=== PATIENT | male | born 1975 | race Caucasian/White ===

== ENCOUNTER 2017-11-03 08:12 | Emergency (ER) | payer MEDICAID, OTHER ==
[~2017-11-03] VITALS: Ht 195.6 cm; Wt 86.0 kg
[~2017-11-03 08:12] MED LIST: BACL10TA2 PF; CITA20TA11 PO; CITA20TA19 PO; CLIN-80 PO; CYCL-1 PO; DIPH25CA83 PO; DOXY100C43 PO; ROPI2TAB4 PO
[2017-11-03 08:24] VITALS: BP 133/73
[2017-11-03] MEDS ORDERED: ketorolac trometh inj. 60 MG/2 ML VIAL IM ONE (08:45)
== END 2017-11-03 09:30 | disposition home or self-care (01) ==
LOC: ER 08:12
DX: S46.912A Strain of unspecified muscle, fascia and tendon at shoulder and upper arm level, left arm, initial encounter (principal); G62.9 Polyneuropathy, unspecified; G89.29 Other chronic pain; F12.10 Cannabis abuse, uncomplicated; F15.10 Other stimulant abuse, uncomplicated; Z59.0 Homelessness; Z56.0 Unemployment, unspecified; X58.XXXA Exposure to other specified factors, initial encounter; Y93.89 Activity, other specified; Y92.89 Other specified places as the place of occurrence of the external cause; Y99.8 Other external cause status
CPT/HCPCS: 96372; 99283; J1885

== ENCOUNTER 2017-11-05 05:29 | Emergency (ER) | payer MEDICARE, OTHER ==
[~2017-11-05] VITALS: Ht 195.6 cm; Wt 81.8 kg
[2017-11-05] MEDS ORDERED: ketorolac tromethamine 15mg/ml inj. IM ONE (07:25)
[2017-11-05 09:08] VITALS: BP 126/72
== END 2017-11-05 09:10 | disposition home or self-care (01) ==
LOC: ER 05:30
DX: S46.912D Strain of unspecified muscle, fascia and tendon at shoulder and upper arm level, left arm, subsequent encounter (principal); G43.909 Migraine, unspecified, not intractable, without status migrainosus; G62.9 Polyneuropathy, unspecified; G89.29 Other chronic pain; F12.10 Cannabis abuse, uncomplicated; F15.10 Other stimulant abuse, uncomplicated; Z86.14 Personal history of Methicillin resistant Staphylococcus aureus infection; Z56.0 Unemployment, unspecified; Z88.5 Allergy status to narcotic agent; Z88.8 Allergy status to other drugs, medicaments and biological substances; Z79.899 Other long term (current) drug therapy; Z98.890 Other specified postprocedural states; X58.XXXD Exposure to other specified factors, subsequent encounter
CPT/HCPCS: 96372; 99284; A4565; J1885

== ENCOUNTER 2017-11-20 23:10 | Emergency (ER) | payer MEDICARE, OTHER ==
[~2017-11-20] VITALS: Ht 195.6 cm; Wt 81.8 kg
[2017-11-20 23:11] VITALS: BP 111/79
[2017-11-20] MEDS ORDERED: PRAM1TAB4 PO (23:23)
== END 2017-11-20 23:31 | disposition home or self-care (01) ==
LOC: ER 23:10
DX: G25.81 Restless legs syndrome (principal); F12.10 Cannabis abuse, uncomplicated; F15.10 Other stimulant abuse, uncomplicated; G62.9 Polyneuropathy, unspecified; G89.29 Other chronic pain; G43.909 Migraine, unspecified, not intractable, without status migrainosus; Z76.0 Encounter for issue of repeat prescription; Z79.899 Other long term (current) drug therapy; Z88.8 Allergy status to other drugs, medicaments and biological substances; Z60.2 Problems related to living alone; Z56.0 Unemployment, unspecified; Z98.890 Other specified postprocedural states
CPT/HCPCS: 99283

== ENCOUNTER 2018-01-17 19:13 | Emergency (ER) | payer MEDICARE, MEDICAID ==
[~2018-01-17] VITALS: Ht 195.6 cm; Wt 65.0 kg
[~2018-01-17 19:13] MED LIST changes: +CITA-278 PO; -CITA20TA11 PO; -CLIN-80 PO; +CLIN300C85 PO; +PRAM1TAB4 PO
[2018-01-17] MEDS ORDERED: LORazepam 1 MG tablet PO ONE (19:40)
[2018-01-17] MEDS ORDERED: diphenhydrAMINE 25mg capsule PO ONE (19:40)
[2018-01-17 19:56] VITALS: BP 150/104
== END 2018-01-17 19:59 | disposition home or self-care (01) ==
LOC: ER 19:14
DX: F41.9 Anxiety disorder, unspecified (principal); G43.909 Migraine, unspecified, not intractable, without status migrainosus; G62.9 Polyneuropathy, unspecified; G89.29 Other chronic pain; F17.200 Nicotine dependence, unspecified, uncomplicated; F12.90 Cannabis use, unspecified, uncomplicated; F15.90 Other stimulant use, unspecified, uncomplicated; Z86.14 Personal history of Methicillin resistant Staphylococcus aureus infection; Z98.890 Other specified postprocedural states; Z56.0 Unemployment, unspecified; Z59.0 Homelessness; Z88.5 Allergy status to narcotic agent; Z88.8 Allergy status to other drugs, medicaments and biological substances; Z79.899 Other long term (current) drug therapy
CPT/HCPCS: 99284; Q0163

== ENCOUNTER 2018-01-28 11:51 | Emergency (ER) | payer MEDICARE, MEDICAID ==
[~2018-01-28] VITALS: Ht 195.6 cm; Wt 75.0 kg
[2018-01-28 12:00] VITALS: BP 121/72
== END 2018-01-28 12:21 | disposition home or self-care (01) ==
LOC: ER 11:51
DX: Z02.89 Encounter for other administrative examinations (principal); F10.10 Alcohol abuse, uncomplicated; F15.10 Other stimulant abuse, uncomplicated; G62.9 Polyneuropathy, unspecified; G43.909 Migraine, unspecified, not intractable, without status migrainosus; F31.9 Bipolar disorder, unspecified; F12.90 Cannabis use, unspecified, uncomplicated; Z59.0 Homelessness; Z56.0 Unemployment, unspecified; Z98.890 Other specified postprocedural states; Z88.5 Allergy status to narcotic agent; Z79.2 Long term (current) use of antibiotics; Z79.899 Other long term (current) drug therapy
CPT/HCPCS: 99281

== ENCOUNTER 2018-06-22 02:03 | Emergency (ER) | payer MEDICARE, MEDICAID ==
[~2018-06-22] VITALS: Ht 195.6 cm; Wt 82.3 kg
[2018-06-22 02:08] VITALS: BP 130/76
[2018-06-22] MEDS ORDERED: LORazepam 1 MG tablet PO ONE (02:20)
[2018-06-22] MEDS ORDERED: ondansetron 4mg rapidly disintigrating tab PO ONE (02:20)
[2018-06-22] MEDS ORDERED: AZIT-63 PO (03:02)
[2018-06-22] MEDS ORDERED: GUAI473S11 PO (03:02)
== END 2018-06-22 03:16 | disposition home or self-care (01) ==
LOC: ER 02:05
DX: F41.9 Anxiety disorder, unspecified (principal); J20.9 Acute bronchitis, unspecified; G43.909 Migraine, unspecified, not intractable, without status migrainosus; G89.29 Other chronic pain; F31.9 Bipolar disorder, unspecified; F12.10 Cannabis abuse, uncomplicated; F15.10 Other stimulant abuse, uncomplicated; G62.9 Polyneuropathy, unspecified; F17.200 Nicotine dependence, unspecified, uncomplicated; Z59.0 Homelessness; Z90.49 Acquired absence of other specified parts of digestive tract; Z56.0 Unemployment, unspecified; Z88.5 Allergy status to narcotic agent
CPT/HCPCS: 99284

== ENCOUNTER 2018-08-21 04:42 | Emergency (ER) | payer MEDICARE, MEDICAID ==
[~2018-08-21] VITALS: Ht 195.6 cm; Wt 62.6 kg
[2018-08-21 04:47] VITALS: BP 140/96
[2018-08-21 05:46] LABS: BASOPHILS # (AUTO) 0.1 X10'3 (0-0.2); BASOPHILS % (AUTO) 0.5 % (0-1); EOSINOPHILS # (AUTO) 0.1 X10'3 (0-0.9); EOSINOPHILS % (AUTO) 1.1 % (0-6); HEMATOCRIT 44.1 % (42.0-52.0); HEMOGLOBIN 15.1 g/dl (14.0-17.9); LYMPHOCYTES # (AUTO) 1.5 X10'3 (1.1-4.8); LYMPHOCYTES % (AUTO) 11.6 % (21-51); MEAN CORPUSCULAR HEMOGLOBIN 30.9 PG (27.0-31.0); MEAN CORPUSCULAR HGB CONC 34.3 g/dL (33.0-36.5); MEAN CORPUSCULAR VOLUME 90.1 FL (78-98); MEAN PLATELET VOLUME 7.5 FL (7.4-10.4); MONOCYTES # (AUTO) 0.7 X10'3 (0-0.9); MONOCYTES % (AUTO) 5.4 % (2-12); NEUTROPHILS # (AUTO) 10.6 X10'3 (1.8-7.7); NEUTROPHILS % (AUTO) 81.4 % (42-75); PLATELET COUNT 277 X10'3 (140-440); RED CELL DISTRIBUTION WIDTH 13.9 % (11.5-14.5)
[2018-08-21 06:17] LABS: ALANINE AMINOTRANSFERASE 22 U/L (12-78); ALBUMIN 4.1 G/DL (3.4-5.0); ALBUMIN/GLOBULIN RATIO 1.1 (1.1-1.5); ALKALINE PHOSPHATASE 69 IU/L (46-116); ANION GAP 14 (8-16); ASPARTATE AMINO TRANSFERASE 24 U/L (10-37); BLOOD UREA NITROGEN 19 MG/DL (7-18); BUN/CREATININE RATIO 18.8 (5.4-32.0); CHLORIDE 101 MMOL/L (99-107); CREATININE 1.01 MG/DL (0.60-1.10); GLUCOSE 140 MG/DL (70-104); SODIUM 142 MMOL/L (135-145); TOTAL CARBON DIOXIDE 26.6 MMOL/L (24-32); TOTAL PROTEIN 7.9 G/DL (6.4-8.2); eGFR 80 ML/MIN
[2018-08-21] MEDS ORDERED: LORazepam 1 MG tablet PO ONE (06:25)
[2018-08-21 06:30] LABS: ETHANOL < 0.010 GM/DL (0.0-0.010)
[2018-08-21 06:30] LABS: URINE AMPHETAMINE SCREEN POSITIVE (Neg); URINE BARBITUATE SCREEN NEGATIVE (Neg); URINE BENZODIAZEPINES SCREEN NEGATIVE (Neg); URINE CANNABINOID SCREEN POSITIVE (Neg); URINE COCAINE SCREEN NEGATIVE (Neg); URINE METHADONE SCREEN NEGATIVE (Neg); URINE OPIATE SCREEN NEGATIVE (Neg); URINE PHENCYCLIDINE SCREEN NEGATIVE (Neg)
--- NOTE | 2018-08-21 06:31 | NUR ---
Pt currently sitting in room awainting to have telepsych consult
[2018-08-21] MEDS ORDERED: potassium 10mEq/100ml NS w/LIDOcaine (10mg/bag) IV ONE (06:49)
--- NOTE | 2018-08-21 06:49 | NUR ---
Pt currently speaking with [facility] psychiatrist.
[2018-08-21] MEDS ORDERED: magnesium oxide 400mg tablet PO ONE (06:50)
[2018-08-21] MEDS ORDERED: potassium CL 10mEq/100ml bag 100 ML IV ONE (06:50)
[2018-08-21] MEDS ORDERED: potassium Cl 20 mEq SR tablet PO ONE (07:05)
[2018-08-21] MEDS ORDERED: DULO-31 PO (07:07)
[2018-08-21] MEDS ORDERED: duloxetine 30mg CAPSULE.DR PO ONE (07:10)
== END 2018-08-21 07:38 | disposition home or self-care (01) ==
LOC: ER 04:43
DX: F32.9 Major depressive disorder, single episode, unspecified (principal); R45.851 Suicidal ideations; F15.10 Other stimulant abuse, uncomplicated; G89.29 Other chronic pain; F41.9 Anxiety disorder, unspecified; F12.90 Cannabis use, unspecified, uncomplicated; Z86.14 Personal history of Methicillin resistant Staphylococcus aureus infection; Z90.49 Acquired absence of other specified parts of digestive tract; Z98.890 Other specified postprocedural states; Z59.0 Homelessness; Z56.0 Unemployment, unspecified; Z88.5 Allergy status to narcotic agent; Z88.8 Allergy status to other drugs, medicaments and biological substances; Z79.899 Other long term (current) drug therapy
CPT/HCPCS: 36415; 80053; 80305; 80320; 83735; 84443; 85025; 99284; J3480

== ENCOUNTER 2018-09-01 13:48 | Outpatient (CLI) | payer MEDICARE, MEDICAID ==
[~2018-09-01 13:48] MED LIST changes: -BACL10TA2 PF; -CITA-278 PO; -CITA20TA19 PO; -CLIN300C85 PO; -CYCL-1 PO; -DIPH25CA83 PO; -DOXY100C43 PO; +DULO-31 PO; -ROPI2TAB4 PO
== END 2018-09-01 23:59 | disposition home or self-care (01) ==
LOC: VAS 13:48
PROVIDERS: ATTEND Specialist
DX: M79.89 Other specified soft tissue disorders (principal); F17.200 Nicotine dependence, unspecified, uncomplicated; Z98.890 Other specified postprocedural states; Z88.5 Allergy status to narcotic agent
CPT/HCPCS: 93971